=== PATIENT | male | born 1945 | race Caucasian/White ===

== ENCOUNTER → 2020-02-16 09:47 | Outpatient (BNVA) | payer OTHER, SELFPAY | PROVIDERS: PCP Internal Medicine; Visit Provider Internal Medicine | DX: J44.9 Chronic obstructive pulmonary disease, unspecified (principal) | CPT/HCPCS: 99213 ==

== ENCOUNTER → 2020-04-11 09:09 | Outpatient (BNVA) | payer OTHER, SELFPAY | PROVIDERS: PCP Internal Medicine; Referring Provider Internal Medicine; Visit Provider Student in an Organized Health Care Education/Training Program | DX: M35.3 Polymyalgia rheumatica (principal); Z87.891 Personal history of nicotine dependence; Z79.52 Long term (current) use of systemic steroids | CPT/HCPCS: 99212 ==

== ENCOUNTER 2020-04-11 10:11 | Outpatient (REF) | payer OTHER, SELFPAY ==
[2020-04-11 11:19] LABS: C Reactive Protein 2.71 mg/dL (< or = 0.50)
[2020-04-11 12:08] LABS: Erythrocyte Sedimentation Rate 15 MM/HR (0-15)
== END 2020-04-11 10:12 | disposition home or self-care (01) ==
LOC: HO.LAB 10:11
PROVIDERS: PCP Family Medicine; Visit Provider Student in an Organized Health Care Education/Training Program
DX: M35.3 Polymyalgia rheumatica (principal)
CPT/HCPCS: 36415; 85652; 86140

== ENCOUNTER → 2020-05-02 09:18 | Outpatient (BNVA) | payer OTHER, SELFPAY | PROVIDERS: PCP Internal Medicine; Visit Provider Internal Medicine | DX: J44.9 Chronic obstructive pulmonary disease, unspecified (principal); R06.00 Dyspnea, unspecified | CPT/HCPCS: 99212 ==

== ENCOUNTER 2020-06-13 07:20 | Outpatient (REF) | payer OTHER, SELFPAY ==
[2020-06-13 08:49] LABS: Erythrocyte Sedimentation Rate 10 MM/HR (0-15)
[2020-06-13 09:00] LABS: C Reactive Protein 0.92 mg/dL (< or = 0.50)
== END 2020-06-13 07:21 | disposition home or self-care (01) ==
LOC: HO.LAB 07:20
PROVIDERS: PCP Student in an Organized Health Care Education/Training Program; Visit Provider Student in an Organized Health Care Education/Training Program
DX: M35.3 Polymyalgia rheumatica (principal); E55.9 Vitamin D deficiency, unspecified; Z79.52 Long term (current) use of systemic steroids
CPT/HCPCS: 36415; 85652; 86140; 99212

== ENCOUNTER 2020-08-16 08:03 | Outpatient (REF) | payer OTHER, SELFPAY ==
[2020-08-16 10:22] LABS: C Reactive Protein 1.13 mg/dL (< or = 0.50)
[2020-08-16 11:04] LABS: Erythrocyte Sedimentation Rate 8 MM/HR (0-15)
[2020-08-20 12:21] LABS: Vitamin D 25-OH, D2 <4 ng/mL; Vitamin D 25-OH, D3 22 ng/mL; Vitamin D 25-OH, Total 22 ng/mL (30-100)
== END 2020-08-16 08:04 | disposition home or self-care (01) ==
LOC: HO.LAB 08:03
PROVIDERS: PCP Internal Medicine; Visit Provider Student in an Organized Health Care Education/Training Program
DX: M35.3 Polymyalgia rheumatica (principal); Z79.52 Long term (current) use of systemic steroids
CPT/HCPCS: 36415; 82306; 85652; 86140; 99212

== ENCOUNTER 2020-09-26 10:52 | Outpatient (REF) | payer OTHER, SELFPAY ==
[2020-09-26 12:37] LABS: C Reactive Protein 0.71 mg/dL (< or = 0.50)
[2020-09-26 13:13] LABS: Erythrocyte Sedimentation Rate 6 MM/HR (0-15)
== END 2020-09-26 10:53 | disposition home or self-care (01) ==
LOC: HO.LAB 10:52
PROVIDERS: PCP Internal Medicine; Visit Provider Student in an Organized Health Care Education/Training Program
DX: M35.3 Polymyalgia rheumatica (principal); Z79.52 Long term (current) use of systemic steroids
CPT/HCPCS: 36415; 85652; 86140; 99212

== ENCOUNTER → 2020-10-29 10:26 | Outpatient (BNVA) | payer OTHER, SELFPAY | PROVIDERS: PCP Internal Medicine; Visit Provider Internal Medicine | DX: J44.9 Chronic obstructive pulmonary disease, unspecified (principal); M35.3 Polymyalgia rheumatica; R06.00 Dyspnea, unspecified | CPT/HCPCS: 99212 ==

== ENCOUNTER 2020-11-13 13:48 | Outpatient (REF) | payer OTHER, SELFPAY ==
[2020-11-13 16:02] LABS: Erythrocyte Sedimentation Rate 12 MM/HR (0-15)
== END 2020-11-13 13:49 | disposition home or self-care (01) ==
LOC: HO.LAB 13:48
PROVIDERS: PCP Internal Medicine; Visit Provider Student in an Organized Health Care Education/Training Program
DX: M35.3 Polymyalgia rheumatica (principal); Z79.52 Long term (current) use of systemic steroids
CPT/HCPCS: 36415; 85652; 86140; 99212

== ENCOUNTER → 2021-01-04 14:04 | Outpatient (BNVA) | payer OTHER, SELFPAY | PROVIDERS: PCP Internal Medicine; Visit Provider Nurse Practitioner Family | DX: M35.3 Polymyalgia rheumatica (principal) | CPT/HCPCS: 99212 ==

== ENCOUNTER 2021-03-06 08:38 | Outpatient (REF) | payer OTHER, SELFPAY ==
[2021-03-06 09:04] LABS: MANUAL DIFF FLAG NO
[2021-03-06 09:32] LABS: Basophils Percent Auto 0.3 % (0-2); Eosinophils Percent Auto 0.4 % (0-4); Hematocrit 38.3 % (42-52); Hemoglobin 12.4 g/dl (14.0-18.0); Imm Gran Abs Auto 0.03 X10*3/uL (0.00-0.03); Imm Gran Pct Auto 0.4 % (0.0-0.4); Lymphocytes Absolute Auto 0.9 X10*3/uL (1.2-4.9); Lymphocytes Percent Auto 11.4 % (20-40); Mean Corpuscular HGB Conc 32.4 g/dl (31.0-36.0); Mean Corpuscular Hemoglobin 27.1 pg (27.0-33.0); Mean Corpuscular Volume 83.8 fL (80-98); Monocytes Absolute Auto 0.7 X10*3/uL (0.1-1.2); Neutrophils Absolute Auto 6.1 X10*3/uL (2.0-8.3); Neutrophils Percent Auto 78.5 % (45-73); Platelet Count 174 X10*3/uL (160-400); Red Blood Count 4.57 X10*6/uL (4.60-5.80); Red Cell Distribution Width 15.5 % (11.0-16.0); White Blood Count 7.8 X10*3/uL (4.8-10.8)
[2021-03-06 09:55] LABS: Alanine Aminotransferase 15 U/L (0-40); Albumin Level 3.9 g/dL (3.5-5.0); Alkaline Phosphatase 131 U/L (39-117); Anion Gap 12 (12-20); Aspartate Amino Transferase 10 U/L (5-37); Bilirubin Total 1.2 mg/dL (0.0-1.0); Blood Urea Nitrogen 20 mg/dL (9-16); C Reactive Protein 2.49 mg/dL (< or = 0.50); Calcium 8.5 mg/dL (8.4-10.2); Carbon Dioxide 26 mmol/L (22-29); Chloride 108 mmol/L (96-108); Estimated Glomerular Filt Rate > 60; Glucose Random 113 mg/dL (60-115); Potassium 4.2 mmol/L (3.3-5.1); Sodium 142 mmol/L (135-145); Total Protein 6.7 g/dL (6.5-8.0)
[2021-03-06 10:24] LABS: Erythrocyte Sedimentation Rate 13 MM/HR (0-15)
== END 2021-03-06 08:39 | disposition home or self-care (01) ==
LOC: HO.LAB 08:38
PROVIDERS: Student in an Organized Health Care Education/Training Program; PCP Internal Medicine; Visit Provider Nurse Practitioner Family
DX: M35.3 Polymyalgia rheumatica (principal)
CPT/HCPCS: 36415; 80053; 85025; 85652; 86140

== ENCOUNTER → 2021-03-11 09:35 | Outpatient (BNVA) | payer OTHER, SELFPAY | PROVIDERS: PCP Internal Medicine; Visit Provider Nurse Practitioner Family | DX: M35.3 Polymyalgia rheumatica (principal) | CPT/HCPCS: 99212 ==

== ENCOUNTER → 2021-04-25 08:59 | Outpatient (BNVA) | payer OTHER, SELFPAY | PROVIDERS: PCP Internal Medicine; Visit Provider Internal Medicine | DX: J44.9 Chronic obstructive pulmonary disease, unspecified (principal); R06.00 Dyspnea, unspecified | CPT/HCPCS: 99212 ==

== ENCOUNTER 2021-05-17 08:12 | Outpatient (REF) | payer OTHER, SELFPAY ==
[2021-05-17 10:20] LABS: C Reactive Protein 0.92 mg/dL (< or = 0.50)
[2021-05-17 10:54] LABS: Erythrocyte Sedimentation Rate 6 MM/HR (0-15)
== END 2021-05-17 08:13 | disposition home or self-care (01) ==
LOC: HO.LAB 08:12
PROVIDERS: Visit Provider Nurse Practitioner Family
DX: M35.3 Polymyalgia rheumatica (principal)
CPT/HCPCS: 36415; 85652; 86140

== ENCOUNTER → 2021-06-28 09:37 | Outpatient (BNVA) | payer OTHER, SELFPAY | PROVIDERS: PCP Internal Medicine; Visit Provider Nurse Practitioner Family | DX: M35.3 Polymyalgia rheumatica (principal) | CPT/HCPCS: 99212 ==

== ENCOUNTER 2021-12-04 13:28 | Outpatient (REF) | payer OTHER, SELFPAY ==
[2021-12-04 14:43] LABS: C Reactive Protein 1.02 mg/dL (< or = 0.50)
[2021-12-04 14:53] LABS: Erythrocyte Sedimentation Rate 9 MM/HR (0-15)
== END 2021-12-04 13:29 | disposition home or self-care (01) ==
LOC: HO.LAB 13:28
PROVIDERS: Visit Provider Nurse Practitioner Family
DX: M35.3 Polymyalgia rheumatica (principal); J44.9 Chronic obstructive pulmonary disease, unspecified; R06.00 Dyspnea, unspecified; Z79.899 Other long term (current) drug therapy
CPT/HCPCS: 36415; 85652; 86140; 99212

== ENCOUNTER → 2021-12-20 08:43 | Outpatient (BNVA) | payer OTHER, SELFPAY | PROVIDERS: PCP Internal Medicine; Visit Provider Nurse Practitioner Family | DX: M35.3 Polymyalgia rheumatica (principal) | CPT/HCPCS: 99202; 99212 ==

== ENCOUNTER → 2022-06-09 09:18 | Outpatient (BNVA) | payer OTHER, SELFPAY | PROVIDERS: PCP Internal Medicine; Visit Provider Internal Medicine | DX: J44.9 Chronic obstructive pulmonary disease, unspecified (principal); R06.00 Dyspnea, unspecified | CPT/HCPCS: 99212 ==

== ENCOUNTER 2022-12-15 08:47 | Outpatient (AMB) | payer OTHER, SELFPAY ==
[2022-12-15 09:14] VITALS: BP 132/70; PULSE 76; O2SAT 96; BMI 29.2
--- NOTE | 2022-12-15 09:14 | A.OFFVIS_ITS ---
Intake Vital Signs 12/15/22 09:14 Height 5 ft 6 in Weight 181 lb BMI 29.2 BP 132/70 Blood Pressure Location Lt brachial Position Standing Pulse 76 Pulse Source Pulse Oximeter Pulse Oximetry (%) 96 Oxygen Delivery Method Room Air Intake Visit Reasons: Obstructive sleep apnea Intake Note: pt is here for follow up and states he is still has some short of breath , and using his his inhaler. Bar Manager Required: No Allergies niacin Allergy (Unknown, Verified 12/15/22 09:21) Unknown penicillin V Allergy (Unknown, Verified 12/15/22 09:21) Unknown Medication List - Last Reconciled 12/15/22 by Yumiko Ayers MD albuterol sulfate 90 mcg/actuation (ProAir HFA) 2 puffs inhalation Q6H PRN amlodipine 2.5 mg PO DAILY aspirin 81 mg PO DAILY diclofenac sodium 1% topical metoprolol tartrate 25 mg PO BID oxybutynin chloride 5 mg PO BID tiotropium-olodaterol 2.5-2.5 mcg/actuation (Stiolto Respimat) 2 puffs inhalation DAILY 90 days Do you need a note to return to daycare/school/sports/work: No HPI Obstructive sleep apnea HPI Details 77 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 BREATHING STATUS HAS REMAINED VERY STABLE, EXCEPT FOR OCCASIONAL COUGH, AND GETTING SHORT OF BREATH ON CLIMBING STAIRS OR DOING HEAVY PHYSICAL WORK. HE HAS HAD NO ACUTE EXACERBATION. HE HAS BEEN USING STIOLTO 1 INHALATION DAILY IN THE MORNING AND DUE TO SOME MISUNDERSTANDING HAS ALSO BEEN USING PROAIR IN THE MORNING. HE REMAINS ACTIVE AND DOES LOT OF WORK AT HOME . [facility] Medical History Cataract COPD (chronic obstructive pulmonary disease) Dyspnea on effort Polymyalgia rheumatica Family History Father No problems noted. Mother No problems noted. Social History Alcohol intake: former Patient Tobacco Use Status: Former Tobacco user Cigarettes Per Day: 20 Years Smoked: 40 e-Cigarette/Vaping Use: Never Used Review of Systems Const All systems reviewed & are unremarkable except as noted in HPI and below Eyes Reports no additional complaints ENT Reports no additional complaints Card Denies chest pain, Denies irregular heart rhythm and Denies leg edema Resp Reports as per HPI GI Denies no additional complaints Reports no additional complaints Musc Reports back pain and Reports myalgias (Mild) Skin/Breast Reports system reviewed and no additional complaints, except as documented Neuro Reports no additional complaints Psych Reports no additional complaints Endo Reports no additional complaints Physical Exam Vital Signs: Last Vital Signs Pulse 76 12/15/22 09:14 BP 132/70 12/15/22 09:14 Pulse Ox 96 12/15/22 09:14 Oxygen Delivery Method Room Air 12/15/22 09:14 BMI result Body Mass Index 29.2 Const Other: HE HAS LOST 12 LBs OF WEIGHT SINCE LAST VISIT IN 2022 General: healthy appearing, comfortable, no acute distress, alert and awake Orientation/consciousness: patient oriented x3 HEENT Head: Yes normal to inspection General nose exam: No nasal polyps present and No nasal discharge present Face and sinus: Yes sinuses nontender Mouth: oropharynx normal Throat: Yes posterior oropharynx normal Eyes General: appearance normal, both eyes and all related structures Neck Neck: Yes normal visual inspection, Yes no lymphadenopathy, Yes trachea midline and Yes no JVD Thyroid: Thyroid normal Chest Chest palpation & inspection: normal inspection of the chest, normal palpation of entire chest wall and no tenderness Resp Other: Percussion note resonant, breath sounds are distant on both sides with prolonged expiratory phase. Lungs are clear AND NO WHEEZES OR RHONCHI . Cardio Palpation: normal PMI Rate: regular rate Rhythm: regular rhythm Heart sounds: no gallops and no murmurs GI Palpation (GI): Soft to palpation, Tenderness to palpation present (GI), No hepatosplenomegaly present, Palpable mass present and Other GI palpation findings present (Abdomen is moderately protuberant) Auscultation: normal bowel sounds Back/Spine/Pelvis Thoracic/Lumbar Spine: thoracic and lumbar spine normal to inspection and thoraco-lumbar ROM limited Skin General skin exam: no rashes or lesions noted Neuro General: patient oriented x3 and no focal motor deficits Cranial nerves: Yes CN's II-XII intact bilaterally Extrem General: Yes normal to inspection, Yes no clubbing, cyanosis or edema and Yes no calf tenderness Psych Speech and movement: Normal speech and movement present Assessment & Plan Assessment & Plan (1) COPD (chronic obstructive pulmonary disease): Comment: MODERATELY SEVERE, PER PFTS IN 2019 AND SPIROMETRY IN May HAS ASTHMA/ COPD OVERLAP SYNDROME. Is well controlled and stable on his current regimen. [place] : CONT.STIOLTO RESPIMAT 1 INHALATION DAILY . AND USE POAIR 2 PUFFS Q 6 HOURS ONLY P.R.N. AND NOT DAILY . DO DEEP BREATHING EXERCISES BID Code(s): J44.9 - Chronic obstructive pulmonary disease, unspecified (2) Dyspnea on effort: Comment: DYSPNEA ON EXERTION IS DEFINITELY RELATED TO HIS COPD, AND IS IMPROVED WITH THE USE OF STIOLTO. CLINICALLY DOING MUCH BETTER THAN BEFORE. ADVISED TO CONTINUE DOING DEEP BREATHING EXERCISES 2 OR 3 TIMES A DAY. Code(s): R06.00 - Dyspnea, unspecified Coding Level of Care Code Est Pt Level 3 (10372) Diagnoses COPD (chronic obstructive pulmonary disease) J44.9 Dyspnea on effort R06.00
== END 2022-12-15 09:30 | disposition home or self-care (01) ==
PROVIDERS: PCP Internal Medicine; Visit Provider Internal Medicine
DX: J44.9 Chronic obstructive pulmonary disease, unspecified (principal); R06.00 Dyspnea, unspecified
CPT/HCPCS: 99213

== ENCOUNTER → 2022-12-15 08:47 | Outpatient (BNVA) | payer OTHER, SELFPAY | PROVIDERS: Visit Provider Internal Medicine | DX: J44.9 Chronic obstructive pulmonary disease, unspecified (principal); R06.00 Dyspnea, unspecified; Z87.891 Personal history of nicotine dependence | CPT/HCPCS: 99212 ==

== ENCOUNTER 2023-06-22 08:58 | Outpatient (AMB) | payer OTHER, SELFPAY ==
[2023-06-22 09:19] VITALS: BP 120/82; PULSE 73; O2SAT 95; BMI 31.3
--- NOTE | 2023-06-22 09:19 | A.OFFVIS_ITS ---
Intake Vital Signs 06/22/23 09:19 Height 5 ft 6 in Weight 194 lb BMI 31.3 BP 120/82 Blood Pressure Location Lt brachial Position Sitting Pulse 73 Pulse Source Pulse Oximeter Pulse Oximetry (%) 95 Oxygen Delivery Method Room Air Intake Visit Reasons: Obstructive sleep apnea Intake Note: pt is here for follow and states his breathing has not changed but sometimes he has better days than other days, exertion is tuff, slow and easy. 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: No Allergies niacin Allergy (Unknown, Verified 06/22/23 09:35) Unknown penicillin V Allergy (Unknown, Verified 06/22/23 09:35) Unknown Medication List - Last Reconciled 06/22/23 by Yumiko Ayers MD albuterol sulfate 90 mcg/actuation (ProAir HFA) 2 puffs inhalation Q6H PRN amlodipine 2.5 mg PO DAILY aspirin 81 mg PO DAILY atorvastatin 80 mg PO DAILY cholecalciferol (vitamin D3) (Vitamin D3) PO diclofenac sodium 1% topical ezetimibe 10 mg PO DAILY lisinopril 40 mg PO BID metoprolol tartrate 50 mg PO BID nitroglycerin mg sublingual oxybutynin chloride 5 mg PO BID tiotropium-olodaterol 2.5-2.5 mcg/actuation (Stiolto Respimat) 2 puffs inhalation DAILY 90 days Do you need a note to return to daycare/school/sports/work: No HPI Obstructive sleep apnea HPI Details 77 years old gentleman, if , is h ere for 6 months follow-up for his COPD. He tells me that he is a regular faith going person,, and that keeps him in good shape. He has not had any. Acute respiratory infection in the last 6 months His breathing has been very stable, he needs to use the rescue inhaler only once in a while. Continues to use Stiolto Respimat 2 puffs daily. [facility] Medical History Cataract Polymyalgia rheumatica COPD (chronic obstructive pulmonary disease) Dyspnea on effort Family History Father No problems noted. Mother No problems noted. Social History Alcohol intake: former Patient Tobacco Use Status: Former Tobacco user Cigarettes Per Day: 20 Years Smoked: 40 e-Cigarette/Vaping Use: Never Used Review of Systems Const All systems reviewed & are unremarkable except as noted in HPI and below Eyes Reports no additional complaints ENT Reports no additional complaints Card Denies chest pain, Denies irregular heart rhythm and Denies leg edema Resp Reports as per HPI GI Denies no additional complaints Reports no additional complaints Musc Reports back pain and Reports myalgias (Mild) Skin/Breast Reports system reviewed and no additional complaints, except as documented Neuro Reports no additional complaints Psych Reports no additional complaints Endo Reports no additional complaints Physical Exam Vital Signs: Last Vital Signs Pulse 73 06/22/23 09:19 BP 120/82 06/22/23 09:19 Pulse Ox 95 06/22/23 09:19 Oxygen Delivery Method Room Air 06/22/23 09:19 BMI result Body Mass Index 31.3 Const Other: HE HAS LOST 12 LBs OF WEIGHT SINCE LAST VISIT IN 2022 General: healthy appearing, comfortable, no acute distress, alert and awake Orientation/consciousness: patient oriented x3 HEENT Head: Yes normal to inspection General nose exam: No nasal polyps present and No nasal discharge present Face and sinus: Yes sinuses nontender Mouth: oropharynx normal Throat: Yes posterior oropharynx normal Eyes General: appearance normal, both eyes and all related structures Neck Neck: Yes normal visual inspection, Yes no lymphadenopathy, Yes trachea midline and Yes no JVD Thyroid: Thyroid normal Chest Chest palpation & inspection: normal inspection of the chest, normal palpation of entire chest wall and no tenderness Resp Other: Percussion note resonant, breath sounds are distant on both sides with prolonged expiratory phase. Lungs are clear AND NO WHEEZES OR RHONCHI . Cardio Palpation: normal PMI Rate: regular rate Rhythm: regular rhythm Heart sounds: no gallops and no murmurs GI Palpation (GI): Soft to palpation, Tenderness to palpation present (GI), No hepatosplenomegaly present, Palpable mass present and Other GI palpation findings present (Abdomen is moderately protuberant) Auscultation: normal bowel sounds Back/Spine/Pelvis Thoracic/Lumbar Spine: thoracic and lumbar spine normal to inspection and thoraco-lumbar ROM limited Skin General skin exam: no rashes or lesions noted Neuro General: patient oriented x3 and no focal motor deficits Cranial nerves: Yes CN's II-XII intact bilaterally Extrem General: Yes normal to inspection, Yes no clubbing, cyanosis or edema and Yes no calf tenderness Psych Speech and movement: Normal speech and movement present Assessment & Plan Assessment & Plan (1) COPD (chronic obstructive pulmonary disease): Comment: MODERATELY SEVERE, PER PFTS IN 2019 AND SPIROMETRY IN May HAS ASTHMA/ COPD OVERLAP SYNDROME. Is well controlled and stable on his current regimen. Code(s): J44.9 - Chronic obstructive pulmonary disease, unspecified Plan: [place] : CONT.STIOLTO RESPIMAT 1 INHALATION DAILY . AND USE POAIR 2 PUFFS Q 6 HOURS ONLY P.R.N. AND NOT DAILY . DO DEEP BREATHING EXERCISES BID (2) Dyspnea on effort: Comment: DYSPNEA ON EXERTION IS DEFINITELY RELATED TO HIS COPD, AND IS IMPROVED WITH THE USE OF STIOLTO. CLINICALLY STABLE AND DOING WELL . Code(s): R06.00 - Dyspnea, unspecified Plan: ADVISED TO CONTINUE DOING DEEP BREATHING EXERCISES 2 OR 3 TIMES A DAY. Coding Level of Care Code Est Pt Level 3 (27677) Diagnoses COPD (chronic obstructive pulmonary disease) J44.9 Dyspnea on effort R06.00
== END 2023-06-22 09:35 | disposition home or self-care (01) ==
PROVIDERS: PCP Internal Medicine; Visit Provider Internal Medicine
DX: J44.9 Chronic obstructive pulmonary disease, unspecified (principal); R06.00 Dyspnea, unspecified
CPT/HCPCS: 99213

== ENCOUNTER → 2023-06-22 08:58 | Outpatient (BNVA) | payer OTHER, SELFPAY | PROVIDERS: PCP Internal Medicine; Visit Provider Internal Medicine | DX: J44.9 Chronic obstructive pulmonary disease, unspecified (principal); R06.00 Dyspnea, unspecified | CPT/HCPCS: 99212 ==

== ENCOUNTER 2023-12-21 09:04 | Outpatient (AMB) | payer OTHER, SELFPAY ==
[2023-12-21 09:22] VITALS: BP 140/80; PULSE 68; O2SAT 95; BMI 30.9
--- NOTE | 2023-12-21 09:22 | A.OFFVIS_ITS ---
Vital Signs 12/21/23 09:22 Height 5 ft 6 in Weight 191 lb 8 oz BMI 30.9 BP 140/80 H Blood Pressure Location Lt brachial Position Sitting Pulse 68 Pulse Source Pulse Oximeter Pulse Oximetry (%) 95 Oxygen Delivery Method Room Air Intake Visit Reasons: Obstructive sleep apnea Intake Note: pt is here for follow up and states he is feeling good, but it is tuff with breathing, hard work affects him. Bedspread Cutter Required: No Allergies niacin Allergy (Unknown, Verified 12/21/23 09:38) Unknown penicillin V Allergy (Unknown, Verified 12/21/23 09:38) Unknown Medication List - Last Reconciled 12/21/23 by Yumiko Ayers MD albuterol sulfate 90 mcg/actuation (ProAir HFA) 2 puffs inhalation Q6H PRN amlodipine 2.5 mg PO DAILY aspirin 81 mg PO DAILY atorvastatin 80 mg PO DAILY cholecalciferol (vitamin D3) (Vitamin D3) PO diclofenac sodium 1% topical ezetimibe 10 mg PO DAILY lisinopril 40 mg PO BID metoprolol tartrate 50 mg PO BID nitroglycerin mg sublingual oxybutynin chloride 5 mg PO BID tiotropium-olodaterol 2.5-2.5 mcg/actuation (Stiolto Respimat) 2 puffs inhalation DAILY 90 days HPI HPI Obstructive sleep apnea: Details: THIS 78 YEARS OLD 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 HE DOES GET SHORT OF BREATH IF HE WALKS FAST OR CLIMBS STAIRS BUT NOT AT REST. HOT AND HUMID. WEATHER BOTHERS HIM HE IS NOT VERY ACTIVE SO NOT ABLE TO LOSE MUCH WEIGHT. CLAIMS THAT. HE SLEEPS WELL HE IS TAKING HIS MEDICATIONS REGULARLY AND USES THE PROAIR ONLY ONCE IN A WHILE. [facility] Medical History Cataract Polymyalgia rheumatica COPD (chronic obstructive pulmonary disease) Dyspnea on effort Family History Father No problems noted. Mother No problems noted. Social History Alcohol intake: former Patient Tobacco Use Status: Former Tobacco user Cigarettes Per Day: 20 Years Smoked: 40 e-Cigarette/Vaping Use: Never Used Review of Systems Const All systems reviewed & are unremarkable except as noted in HPI and below Eyes Reports no additional complaints ENT Reports no additional complaints Card Denies chest pain, Denies irregular heart rhythm and Denies leg edema Resp Reports as per HPI GI Denies no additional complaints Reports no additional complaints Musc Reports back pain and Reports myalgias (Mild) Skin/Breast Reports system reviewed and no additional complaints, except as documented Neuro Reports no additional complaints Psych Reports no additional complaints Endo Reports no additional complaints Physical Exam Vital Signs: Last Vital Signs Pulse 68 12/21/23 09:22 BP 140/80 H 12/21/23 09:22 Pulse Ox 95 12/21/23 09:22 Oxygen Delivery Method Room Air 12/21/23 09:22 BMI result Body Mass Index 30.9 Const Other: HE HAS LOST 12 LBs OF WEIGHT SINCE LAST VISIT IN 2022 General: healthy appearing, comfortable, no acute distress, alert and awake Orientation/consciousness: patient oriented x3 HEENT Head: Yes normal to inspection General nose exam: No nasal polyps present and No nasal discharge present Face and sinus: Yes sinuses nontender Mouth: oropharynx normal Throat: Yes posterior oropharynx normal Eyes General: appearance normal, both eyes and all related structures Neck Neck: Yes normal visual inspection, Yes no lymphadenopathy, Yes trachea midline and Yes no JVD Thyroid: Thyroid normal Chest Chest palpation & inspection: normal inspection of the chest, normal palpation of entire chest wall and no tenderness Resp Other: Percussion note resonant, breath sounds are distant on both sides with prolonged expiratory phase. Lungs are clear AND NO WHEEZES OR RHONCHI . Cardio Palpation: normal PMI Rate: regular rate Rhythm: regular rhythm Heart sounds: no gallops and no murmurs GI Palpation (GI): Soft to palpation, Tenderness to palpation present (GI), No hepatosplenomegaly present, Palpable mass present and Other GI palpation findings present (Abdomen is moderately protuberant) Auscultation: normal bowel sounds Back/Spine/Pelvis Thoracic/Lumbar Spine: thoracic and lumbar spine normal to inspection and thoraco-lumbar ROM limited Skin General skin exam: no rashes or lesions noted Neuro General: patient oriented x3 and no focal motor deficits Cranial nerves: Yes CN's II-XII intact bilaterally Extrem General: Yes normal to inspection, Yes no clubbing, cyanosis or edema and Yes no calf tenderness Psych Speech and movement: Normal speech and movement present Assessment & Plan Assessment & Plan (1) COPD (chronic obstructive pulmonary disease): Comment: MODERATELY SEVERE, PER PFTS IN 2019 AND SPIROMETRY IN May HAS ASTHMA/ COPD OVERLAP SYNDROME. Is well controlled and stable on his current regimen. Code(s): J44.9 - Chronic obstructive pulmonary disease, unspecified Category: Medical Plan: CONTINUE STIOLTO RESPIMAT 1 INHALATION B.I.D. AND CONTINUE TO USE PROAIR ONLY NEEDED (2) Dyspnea on effort: Comment: DYSPNEA ON EXERTION IS DEFINITELY RELATED TO HIS COPD, AND IS IMPROVED WITH THE USE OF STIOLTO. CLINICALLY STABLE AND DOING WELL . Code(s): R06.00 - Dyspnea, unspecified Category: Medical Plan: CONTINUE THE SAME MEDICATION, TRY TO WALK ON A DAILY BASIS Coding Level of Care Code Est Pt Level 3 (90233) Diagnoses COPD (chronic obstructive pulmonary disease) J44.9 Dyspnea on effort R06.00
== END 2023-12-21 09:47 | disposition home or self-care (01) ==
PROVIDERS: PCP Internal Medicine; Referring Provider Internal Medicine; Visit Provider Internal Medicine
DX: J44.9 Chronic obstructive pulmonary disease, unspecified (principal); R06.00 Dyspnea, unspecified
CPT/HCPCS: 99213

== ENCOUNTER → 2023-12-21 09:04 | Outpatient (BNVA) | payer OTHER, SELFPAY | PROVIDERS: PCP Internal Medicine; Visit Provider Internal Medicine | DX: J44.9 Chronic obstructive pulmonary disease, unspecified (principal); R06.00 Dyspnea, unspecified; G47.33 Obstructive sleep apnea (adult) (pediatric) | CPT/HCPCS: 99212 ==

== ENCOUNTER 2024-06-21 09:00 | Outpatient (AMB) | payer OTHER, SELFPAY ==
--- NOTE | 2024-06-21 09:09 | A.OFFVIS_ITS ---
Vital Signs 06/21/24 09:10 Height 5 ft 6 in Weight 191 lb 0.8 oz BMI 30.8 BP 130/68 Blood Pressure Location Lt brachial Position Sitting Pulse 52 Pulse Source Pulse Oximeter Pulse Oximetry (%) 97 Oxygen Delivery Method Room Air Intake Visit Reasons: COPD follow-up Imaging Technologist Required: No Allergies niacin Allergy (Unknown, Verified 06/21/24 09:22) Unknown penicillin V Allergy (Unknown, Verified 06/21/24 09:22) Unknown Medication List - Last Reconciled 06/21/24 by Yumiko Ayers MD albuterol sulfate 90 mcg/actuation (ProAir HFA) 2 puffs inhalation Q6H PRN amlodipine 2.5 mg PO DAILY aspirin 81 mg PO DAILY atorvastatin 80 mg PO DAILY cholecalciferol (vitamin D3) (Vitamin D3) PO diclofenac sodium 1% topical ezetimibe 10 mg PO DAILY lisinopril 40 mg PO BID metoprolol tartrate 50 mg PO BID nitroglycerin mg sublingual oxybutynin chloride 5 mg PO BID tiotropium-olodaterol 2.5-2.5 mcg/actuation (Stiolto Respimat) 2 puffs inhalation DAILY 90 days Do you need a note to return to daycare/school/sports/work: No HPI HPI COPD follow-up: Details: 78 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 BREATHING STATUS HAS REMAINED VERY STABLE. HE HAS ONLY OCCASIONAL COUGH. NO WHEEZING ATTACKS BUT HE GETS SHORT OF BREATH WALKING UP HILL OR CLIMBING STAIRS. HE IS NONSMOKER. *GOES TO [employer] EVERY THURSDAY AND HE IS CERTAIN THAT THIS KEEPS HIS MIND STRAIGHT AND ALSO IN GOOD HEALTH. [facility] Medical History Cataract Polymyalgia rheumatica COPD (chronic obstructive pulmonary disease) Dyspnea on effort Family History Father No problems noted. Mother No problems noted. Social History Alcohol intake: former Patient Tobacco Use Status: Former Tobacco user Cigarettes Per Day: 20 Years Smoked: 40 e-Cigarette/Vaping Use: Never Used Review of Systems Const All systems reviewed & are unremarkable except as noted in HPI and below Eyes Reports no additional complaints ENT Reports no additional complaints Card Denies chest pain, Denies irregular heart rhythm and Denies leg edema Resp Reports as per HPI GI Denies no additional complaints Reports no additional complaints Musc Reports back pain and Reports myalgias (Mild) Skin/Breast Reports system reviewed and no additional complaints, except as documented Neuro Reports no additional complaints Psych Reports no additional complaints Endo Reports no additional complaints Physical Exam Vital Signs: Last Vital Signs Pulse 52 06/21/24 09:10 BP 130/68 06/21/24 09:10 Pulse Ox 97 06/21/24 09:10 Oxygen Delivery Method Room Air 06/21/24 09:10 BMI result Body Mass Index 30.8 Const Other: HE HAS LOST 12 LBs OF WEIGHT SINCE LAST VISIT IN 2022 General: healthy appearing, comfortable, no acute distress, alert and awake Orientation/consciousness: patient oriented x3 HEENT Head: Yes normal to inspection General nose exam: No nasal polyps present and No nasal discharge present Face and sinus: Yes sinuses nontender Mouth: oropharynx normal Throat: Yes posterior oropharynx normal Eyes General: appearance normal, both eyes and all related structures Neck Neck: Yes normal visual inspection, Yes no lymphadenopathy, Yes trachea midline and Yes no JVD Thyroid: Thyroid normal Chest Chest palpation & inspection: normal inspection of the chest, normal palpation of entire chest wall and no tenderness Resp Other: Percussion note resonant, breath sounds are distant on both sides with prolonged expiratory phase. Lungs are clear AND NO WHEEZES OR RHONCHI . Cardio Palpation: normal PMI Rate: regular rate Rhythm: regular rhythm Heart sounds: no gallops and no murmurs GI Palpation (GI): Soft to palpation, Tenderness to palpation present (GI), No hepatosplenomegaly present, Palpable mass present and Other GI palpation findings present (Abdomen is moderately protuberant) Auscultation: normal bowel sounds Back/Spine/Pelvis Thoracic/Lumbar Spine: thoracic and lumbar spine normal to inspection and thoraco-lumbar ROM limited Skin General skin exam: no rashes or lesions noted Neuro General: patient oriented x3 and no focal motor deficits Cranial nerves: Yes CN's II-XII intact bilaterally Extrem General: Yes normal to inspection, Yes no clubbing, cyanosis or edema and Yes no calf tenderness Psych Speech and movement: Normal speech and movement present Assessment & Plan Assessment & Plan (1) COPD (chronic obstructive pulmonary disease): Comment: MODERATELY SEVERE, PER PFTS IN 2019 AND SPIROMETRY IN May HE HAS ASTHMA/ COPD OVERLAP SYNDROME, WHICH REMAINS WELL CONTROLLED WITH THE USE OF STIOLTO RESPIMAT 2 INHALATIONS DAILY. HE TAKES GOOD CARE OF HIMSELF. AND THERE HAS BEEN NO RESPIRATORY INFECTION. Code(s): J44.9 - Chronic obstructive pulmonary disease, unspecified Category: Medical Plan: CONTINUE STIOLTO RESPIMAT 2 INHALATIONS DAILY. PROAIR HFA 1 OR 2 PUFFS Q 6 HOURS ONLY P.R.N. (2) Dyspnea on effort: Comment: DYSPNEA ON EXERTION IS DEFINITELY RELATED TO HIS COPD, AND IS IMPROVED WITH THE USE OF STIOLTO. CLINICALLY STABLE AND DOING WELL . Code(s): R06.00 - Dyspnea, unspecified Category: Medical Plan: CONTINUE SAME TREATMENT. DO DEEP BREATHING EXERCISES 2 TO 3 TIMES A DAY. KEEP WEIGHT IN CONTROL. Coding Level of Care Code Est Pt Level 3 (35983) Diagnoses COPD (chronic obstructive pulmonary disease) J44.9 Dyspnea on effort R06.00
[2024-06-21 09:10] VITALS: BP 130/68; PULSE 52; O2SAT 97; BMI 30.8
== END 2024-06-21 09:24 | disposition home or self-care (01) ==
PROVIDERS: PCP Internal Medicine; Visit Provider Internal Medicine
DX: J44.9 Chronic obstructive pulmonary disease, unspecified (principal); R06.00 Dyspnea, unspecified
CPT/HCPCS: 99213

== ENCOUNTER → 2024-06-21 09:00 | Outpatient (BNVA) | payer OTHER, SELFPAY | PROVIDERS: PCP Internal Medicine; Visit Provider Internal Medicine | DX: J44.9 Chronic obstructive pulmonary disease, unspecified (principal); R06.00 Dyspnea, unspecified | CPT/HCPCS: 99212 ==

== ENCOUNTER 2024-12-19 08:55 | Outpatient (AMB) | payer OTHER, SELFPAY ==
--- NOTE | 2024-12-19 09:04 | A.OFFVIS_ITS ---
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 Required: No Allergies niacin Allergy (Unknown, Verified 12/19/24 09:11) Unknown penicillin V Allergy (Unknown, Verified 12/19/24 09:11) Unknown Medication List - Last Reconciled 12/19/24 by Yumiko Ayers MD albuterol sulfate 90 mcg/actuation (ProAir HFA) 2 puffs inhalation Q6H PRN amlodipine 2.5 mg PO DAILY aspirin 81 mg PO DAILY atorvastatin 80 mg PO DAILY cholecalciferol (vitamin D3) (Vitamin D3) PO diclofenac sodium 1% topical ezetimibe 10 mg PO DAILY lisinopril 40 mg PO BID metoprolol tartrate 50 mg PO BID nitroglycerin mg sublingual oxybutynin chloride 5 mg PO BID tiotropium-olodaterol 2.5-2.5 mcg/actuation (Stiolto Respimat) 2 puffs inhalation DAILY 90 days Do you need a note to return to daycare/school/sports/work: No HPI HPI COPD follow-up: Details: Jerry is 79 years old gentleman, very active, sotelo , comes for COPD follow- up, after 6 months . He has remained stable, with only mild intermittent cough and mild shortness of breath on walking up hills hills or climbing stairs . 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 He attributes his good health to these to activities. Uses Stiolto Respimat once a day and albuterol HFA only once in a while. [facility] Medical History Cataract Polymyalgia rheumatica COPD (chronic obstructive pulmonary disease) Dyspnea on effort Family History Father No problems noted. Mother No problems noted. Social History Alcohol intake: former Patient Tobacco Use Status: Former Tobacco user Cigarettes Per Day: 20 Years Smoked: 40 e-Cigarette/Vaping Use: Never Used Review of Systems Const All systems reviewed & are unremarkable except as noted in HPI and below Eyes Reports no additional complaints ENT Reports no additional complaints Card Denies chest pain, Denies irregular heart rhythm and Denies leg edema Resp Reports as per HPI GI Denies no additional complaints Reports no additional complaints Musc Reports back pain and Reports myalgias (Mild) Skin/Breast Reports system reviewed and no additional complaints, except as documented Neuro Reports no additional complaints Psych Reports no additional complaints Endo Reports no additional complaints Physical Exam Vital Signs: Last Vital Signs Pulse 67 12/19/24 09:05 BP 130/78 12/19/24 09:05 Pulse Ox 95 12/19/24 09:05 Oxygen Delivery Method Room Air 12/19/24 09:05 BMI result Body Mass Index 28.8 Const Other: HE HAS LOST 12 LBs OF WEIGHT SINCE LAST VISIT IN 2022 General: healthy appearing, comfortable, no acute distress, alert and awake Orientation/consciousness: patient oriented x3 HEENT Head: Yes normal to inspection General nose exam: No nasal polyps present and No nasal discharge present Face and sinus: Yes sinuses nontender Mouth: oropharynx normal Throat: Yes posterior oropharynx normal Eyes General: appearance normal, both eyes and all related structures Neck Neck: Yes normal visual inspection, Yes no lymphadenopathy, Yes trachea midline and Yes no JVD Thyroid: Thyroid normal Chest Chest palpation & inspection: normal inspection of the chest, normal palpation of entire chest wall and no tenderness Resp Other: Percussion note resonant, breath sounds are distant on both sides with prolonged expiratory phase. Lungs are clear AND NO WHEEZES OR RHONCHI . Cardio Palpation: normal PMI Rate: regular rate Rhythm: regular rhythm Heart sounds: no gallops and no murmurs GI Palpation (GI): Soft to palpation, Tenderness to palpation present (GI), No hepatosplenomegaly present, Palpable mass present and Other GI palpation findings present (Abdomen is moderately protuberant) Auscultation: normal bowel sounds Back/Spine/Pelvis Thoracic/Lumbar Spine: thoracic and lumbar spine normal to inspection and thoraco-lumbar ROM limited Skin General skin exam: no rashes or lesions noted Neuro General: patient oriented x3 and no focal motor deficits Cranial nerves: Yes CN's II-XII intact bilaterally Extrem General: Yes normal to inspection, Yes no clubbing, cyanosis or edema and Yes no calf tenderness Psych Speech and movement: Normal speech and movement present Office Procedures Spirometry Testing Spirometry Comments: Spirometry done in the office, Dr. Ayers given the results results scanned to his chart. 57617- Spirometry Results Reviewed Results Reviewed: SPIROMETRY : Assessment & Plan Assessment & Plan (1) COPD (chronic obstructive pulmonary disease): Comment: MODERATELY SEVERE, PER PFTS IN 2019 AND SPIROMETRY IN May HE HAS ASTHMA/ COPD OVERLAP SYNDROME, WHICH REMAINS WELL CONTROLLED WITH THE USE OF STIOLTO RESPIMAT 2 INHALATIONS DAILY. HE TAKES GOOD CARE OF HIMSELF. AND THERE HAS BEEN NO RESPIRATORY INFECTION. Code(s): J44.9 - Chronic obstructive pulmonary disease, unspecified Category: Medical Plan: Commended for taking good care of himself Advised to keep on using Stiolto Respimat 2 inhalations daily,, and albuterol HFA 2 puffs Q 6 hours only p.r.n.. (2) Dyspnea on effort: Comment: DYSPNEA ON EXERTION IS DEFINITELY RELATED TO HIS COPD, AND IS IMPROVED WITH THE USE OF STIOLTO. CLINICALLY STABLE AND DOING WELL . Code(s): R06.00 - Dyspnea, unspecified Category: Medical Plan: Commended for staying very active. 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 And going to [employer] regularly. Orders: Orders AMB Spirometry Testing Today J44.9 - Chronic obstructive pulmonary disease, unspecified Coding Level of Care Code Est Pt Level 3 (22561) Diagnoses COPD (chronic obstructive pulmonary disease) J44.9 Dyspnea on effort R06.00 CPT Codes Spirometry - CPT: 72568- Spirometry ([id number])
[2024-12-19 09:05] VITALS: BP 130/78; PULSE 67; O2SAT 95; BMI 28.8
--- OUTSIDE RECORDS SUMMARY | 2024-12-19 09:17 | XMS_ITS | Encounter Summary ---
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 Name Role Phone Jeremy Kong MD Primary Care Provider + Dana Green DO Primary Care Provider [phone] Jeremy Kong MD Unavailable Pcp, Unknown Primary Care Provider Unavailabl e Encounter Details Date Type Department Care Team (Late st Contact Info) Description 05/14/2017 Procedure [facility]Outside Imaging [address], [place] [id number] Social History Tobacco Use Types Packs/Day Years Used Date Smoking Tobacco: Never Assessed Sex and Gender Information Value Date Recorded Sex Assigned at Male 10/09/2017 3:20 PM EDT Legal Sex Male 10:38 PM EDT Gender Identity Male 10/09/2017 3:20 PM EDT Sexual Orientation Straight 10/09/2017 3: 20 PM EDT documented as of this encounter Plan of Treatment Not on file documented as of this encounter Visit Diagnoses Not on filedocumented in this encounter Care Teams Highway Maintenance Worker Relationship Specialty Start Date End Date Jeremy Kong MD [address] [place] [address] PCP - General Internal Medicine 05/13/17 03/05/20 Dana Green DO [address] [place] [address], [address] [place] [address] PCP - General Family Medicine 03/06/20 11/04/22 Pcp, Unknown PCP - General 11/05/22 Jeremy Kong MD [address] [place] [id number] Internal Medicine 10/19/20 documented as of this encounter Additional Source Comments The information contained in this document represents components of the legal health record. It is not the complete legal health record.[facility]
== END 2024-12-19 09:39 | disposition home or self-care (01) ==
PROVIDERS: PCP Internal Medicine; Visit Provider Internal Medicine
DX: J44.9 Chronic obstructive pulmonary disease, unspecified (principal); R06.00 Dyspnea, unspecified
CPT/HCPCS: 94010; 99213

== ENCOUNTER → 2024-12-19 08:55 | Outpatient (BNVA) | payer OTHER, SELFPAY | PROVIDERS: PCP Internal Medicine; Visit Provider Internal Medicine | DX: J44.9 Chronic obstructive pulmonary disease, unspecified (principal); R06.00 Dyspnea, unspecified | CPT/HCPCS: 94010; 99212 ==